=== PATIENT | female | born 1965 | race Two or more races ===

== ENCOUNTER 2017-04-21 07:35 | Emergency (ER) | payer OTHER, SELFPAY ==
[~2017-04-21] VITALS: Ht 154.9 cm; Wt 120.1 kg
[2017-04-21 07:38] VITALS: BP 138/84
[2017-04-21] MEDS ORDERED: IBUPROFEN 200 MG TABLET PO ONE (08:00)
[2017-04-21] MEDS ORDERED: HYDROcodone/APAP 5/325 TABLET PO ONE (08:00)
[2017-04-21] MEDS ORDERED: IBUPROFEN 200 MG TABLET ONE (08:10)
[2017-04-21] MEDS ORDERED: HYDROcodone/APAP 5/325 TABLET ONE (08:10)
[2017-04-21 08:26] LABS: HEMATOCRIT 40.5 % (34.6-47.8); HEMOGLOBIN 13.9 g/dL (11.7-16.4); WHITE BLOOD COUNT 6.7 x10^3/uL (3.4-10)
== END 2017-04-21 09:26 | disposition home or self-care (01) ==
LOC: ED 09:24
DX: L03.032 Cellulitis of left toe (principal); M79.672 Pain in left foot
CPT/HCPCS: 36415; 84550; 85025; 99285

== ENCOUNTER 2017-06-13 00:24 | Emergency (ER) | payer OTHER ==
[~2017-06-13] VITALS: Ht 157.5 cm; Wt 122.2 kg
[2017-06-13 00:26] VITALS: BP 145/85
[2017-06-13] MEDS ORDERED: KETOROLAC 30 MG/1 ML ONE (00:39)
[2017-06-13] MEDS ORDERED: KETOROLAC 30 MG/1 ML IM ONE (01:00)
== END 2017-06-13 01:54 | disposition home or self-care (01) ==
LOC: ED 01:49
DX: S40.012A Contusion of left shoulder, initial encounter (principal); S60.212A Contusion of left wrist, initial encounter; E11.9 Type 2 diabetes mellitus without complications; W10.8XXA Fall (on) (from) other stairs and steps, initial encounter; Y93.89 Activity, other specified; Y92.098 Other place in other non-institutional residence as the place of occurrence of the external cause; Y99.8 Other external cause status
CPT/HCPCS: 73030; 73110; 96372; 99284; J1885

== ENCOUNTER 2017-09-23 20:53 | Emergency (ER) | payer SELFPAY ==
[~2017-09-23] VITALS: Ht 162.6 cm; Wt 120.0 kg
[2017-09-23 21:31] VITALS: BP 133/79
[2017-09-23] MEDS ORDERED: NAPROXEN 500 MG TABLET PO ONE (22:30)
== END 2017-09-23 23:22 | disposition home or self-care (01) ==
LOC: ED 23:09
DX: M25.512 Pain in left shoulder (principal); M79.602 Pain in left arm; E11.9 Type 2 diabetes mellitus without complications
CPT/HCPCS: 93005; 99284

== ENCOUNTER 2017-12-24 23:36 | Observation (INO) | payer SELFPAY ==
[~2017-12-24] VITALS: Ht 165.1 cm; Wt 110.8 kg
[2017-12-25 00:27] LABS: MD NO; MEAN PLATELET VOLUME 7.5 fL (7.4-10.4)
[2017-12-25 00:34] LABS: BASOPHILS # (AUTO) 0.03 x10^3/uL (0-0.1); BASOPHILS % (AUTO) 0 % (0-1); EOSINOPHILS # (AUTO) 0.13 x10^3/uL (0-0.4); EOSINOPHILS % (AUTO) 2 % (1-7); LYMPHOCYTES % (AUTO) 36 % (22-44); MEAN CORPUSCULAR HEMOGLOBIN 29.8 pg (27.0-34.8); MEAN CORPUSCULAR HGB CONC 34.4 g/dL (32.4-35.8); MEAN CORPUSCULAR VOLUME 86.7 fL (80-100); MONOCYTES # (AUTO) 0.42 x10^3/uL (0.2-0.8); MONOCYTES % (AUTO) 5 % (2-9); NEUTROPHILS # (AUTO) 4.43 x10^3/uL (1.8-6.8); NEUTROPHILS % (AUTO) 57 % (42-75); PLATELET COUNT 308 x10^3/uL (130-400); RED BLOOD COUNT 4.59 x10^6/uL (3.82-5.3); RED CELL DISTRIBUTION WIDTH 13.6 % (9.6-15.2)
[2017-12-25 00:41] LABS: ALBUMIN 3.7 g/dL (3.4-5.0); ANION GAP 3 mmol/L (5-15); CALCIUM 8.7 mg/dL (8.5-10.1); CHLORIDE 104 mmol/L (98-107); CREATININE 0.77 mg/dL (0.55-1.02)
[2017-12-25 00:45] LABS: TROPONIN I < 0.015 ng/mL (0.000-0.045)
[2017-12-25] MEDS ORDERED: METF500T5 PO ×2 (00:59→02:50)
[2017-12-25] MEDS ORDERED: MORPHINE SULFATE 4 MG/ML, 1ML IVPush PRN ×2 (01:30→02:30)
[2017-12-25] MEDS ORDERED: ONDANSETRON 2MG/ML, 2ML IVPush PRN ×2 (01:30→05:00)
[2017-12-25] MEDS ORDERED: ACETAMINOPHEN 325 MG TABLET ONE (02:25)
[2017-12-25] MEDS ORDERED: NITROGLYCERIN 0.4 MG BOTTLE (25 TABS) SL ONE (02:26)
[2017-12-25] MEDS: ACETAMINOPHEN 325 MG TABLET PO PRN ×2 (02:27→08:46)
[2017-12-25] MEDS ORDERED: NITROGLYCERIN 0.4 MG/SPRAY SL PRN (02:30)
[2017-12-25] MEDS ORDERED: NITROGLYCERIN 0.4 MG BOTTLE (25 TABS) SL PRN ×2 (02:30→05:00)
[2017-12-25 02:31] VITALS: BP 118/77
[2017-12-25 02:36] VITALS: BP 112/73
[2017-12-25 02:38] VITALS: BP 119/80
[2017-12-25 02:56] LABS: TROPONIN I < 0.015 ng/mL (0.000-0.045)
[2017-12-25] MEDS ORDERED: SODIUM CHLORIDE 0.9% 1,000 ML IV SCH (04:55)
[2017-12-25] MEDS ORDERED: DOCUSATE 100 MG CAPSULE PO PRN (05:00)
[2017-12-25] MEDS ORDERED: PROMETHAZINE 25 MG/ML, 1ML IM PRN (05:00)
[2017-12-25] MEDS ORDERED: OXYcodone IR 5MG TABLET PO PRN (05:00)
[2017-12-25] MEDS ORDERED: morphine SULFATE 10 MG/ML, 1ML IVPush PRN (05:00)
[2017-12-25] MEDS ORDERED: HEPARIN 5,000 UNITS/ML, 1ML SQ SCH (05:00)
[2017-12-25] MEDS ORDERED: BISACODYL 10 MG SUPP PR PRN (05:00)
[2017-12-25] MEDS ORDERED: POLYETHYLENE GLYCOL 17 GM PACKET PO PRN (05:00)
[2017-12-25] MEDS ORDERED: ACETAMINOPHEN 325 MG TABLET PO PRN (05:00)
[2017-12-25] MEDS ORDERED: ONDANSETRON ODT 4 MG PO PRN (05:00)
[2017-12-25] MEDS ORDERED: AMOXICILLIN/CLAV 875-125MG TABLET PO SCH (05:30)
[2017-12-25] MEDS ORDERED: ASPIRIN 325 MG TABLET EC PO SCH (06:00)
[2017-12-25 06:47] VITALS: BP 110/74
[2017-12-25] MEDS: INSULIN LISPRO 100 UNITS/ML, PEN SQ-INSULIN SCH ×2 (07:00→11:00)
[2017-12-25 07:12] LABS: TROPONIN I < 0.015 ng/mL (0.000-0.045)
[2017-12-25 07:18] LABS: CHOL/HDL RATIO 3.4; FREE T4 (FREE THYROXINE) 1.28 ng/dL (0.76-1.46); THYROID STIMULATING HORMONE 1.85 mIU/L (0.358-3.740)
[2017-12-25 07:35] LABS: HEMOGLOBIN A1C 6.9 % (4.2-6.3)
[2017-12-25] MEDS ORDERED: REGADENOSON 0.4 MG/5 ML SYRINGE ONE (08:06)
[2017-12-25 09:17] LABS: MICROSCOPIC NOT IND
[2017-12-25 09:19] LABS: CULTURE INDICATED? NO
[2017-12-25] MEDS ORDERED: ACET-1600 PO (13:06)
[2017-12-25] MEDS ORDERED: OMEP-110 PO (13:06)
[2017-12-25] MEDS ORDERED: AMOX1TAB12 PO (13:06)
== END 2017-12-25 15:22 | disposition home or self-care (01) ==
LOC: ED 23:59 → EDIP 12-25 01:29 → INTOOBSV 12-25 01:29 → 5SO 12-25 02:15
PROVIDERS: ADMIT Internal Medicine; ATTEND Internal Medicine
DX: R07.89 Other chest pain (principal); H92.01 Otalgia, right ear; R06.00 Dyspnea, unspecified; E11.9 Type 2 diabetes mellitus without complications; E78.5 Hyperlipidemia, unspecified; K21.9 Gastro-esophageal reflux disease without esophagitis; Z82.49 Family history of ischemic heart disease and other diseases of the circulatory system; Z83.3 Family history of diabetes mellitus
CPT/HCPCS: 36415; 71045; 78452; 80048; 80061; 81003; 82040; 82962; 83036; 83735; 84439; 84443; 84484; 85025; 93005; 93017; 96360; 96361; 96372; 99285; A9502; C9898; G0378; J1644; J2785; J7030

== ENCOUNTER 2018-04-24 17:30 | Emergency (ER) | payer MEDICAID, OTHER ==
[~2018-04-24] VITALS: Ht 157.5 cm; Wt 117.5 kg
[~2018-04-24 17:30] MED LIST: ACET-1600 PO; AMOX1TAB12 PO; METF500T17 PO; OMEP-110 PO
[2018-04-24 19:11] VITALS: BP 150/69
== END 2018-04-24 19:13 | disposition home or self-care (01) ==
LOC: ED 18:47
DX: N64.4 Mastodynia (principal); E78.5 Hyperlipidemia, unspecified; E11.9 Type 2 diabetes mellitus without complications
CPT/HCPCS: 76642; 99284

== ENCOUNTER 2018-10-25 16:52 | Emergency (ER) | payer SELFPAY ==
[~2018-10-25] VITALS: Ht 154.9 cm; Wt 117.6 kg
[2018-10-25 17:27] LABS: BASOPHILS # (AUTO) 0.04 x10^3/uL (0-0.1); BASOPHILS % (AUTO) 0 % (0-1); EOSINOPHILS # (AUTO) 0.11 x10^3/uL (0-0.4); EOSINOPHILS % (AUTO) 1 % (1-7); LYMPHOCYTES # (AUTO) 3.17 x10^3/uL (1-3.4); LYMPHOCYTES % (AUTO) 33 % (22-44); MD NO; MEAN CORPUSCULAR HEMOGLOBIN 29.7 pg (27.0-34.8); MEAN CORPUSCULAR HGB CONC 33.4 g/dL (32.4-35.8); MEAN CORPUSCULAR VOLUME 88.8 fL (80-100); MEAN PLATELET VOLUME 7.3 fL (7.4-10.4); MONOCYTES # (AUTO) 0.61 x10^3/uL (0.2-0.8); MONOCYTES % (AUTO) 6 % (2-9); NEUTROPHILS # (AUTO) 5.56 x10^3/uL (1.8-6.8); NEUTROPHILS % (AUTO) 59 % (42-75); PLATELET COUNT 338 x10^3/uL (130-400); RED CELL DISTRIBUTION WIDTH 13.3 % (9.6-15.2)
--- NOTE | 2018-10-25 17:28 | NUR ---
SARAVIA AND COLD-LIKE CONGESTION SINCE YESTERDAY WITH CP SINCE 5 AM. SHARP, PRESSURE. RADIATES TO THE BACK WITH NAUSEA.
[2018-10-25 17:38] LABS: ALANINE AMINOTRANSFERASE 19 U/L (12-78); ALBUMIN 3.7 g/dL (3.4-5.0); ANION GAP 7 mmol/L (5-15); CALCIUM 8.6 mg/dL (8.5-10.1); CHLORIDE 103 mmol/L (98-107); CREATININE 0.76 mg/dL (0.55-1.02)
[2018-10-25 17:42] LABS: ALKALINE PHOSPHATASE 114 U/L (45-117); BILIRUBIN,TOTAL 0.4 mg/dL (0.2-1.0); TOTAL PROTEIN 7.5 g/dL (6.4-8.2); TROPONIN I < 0.015 ng/mL (0.000-0.045)
[2018-10-25] MEDS ORDERED: ONDANSETRON 2MG/ML, 2ML ONE (17:49)
[2018-10-25] MEDS ORDERED: SODIUM CHLORIDE FLUSH 10ML SYR IVF ONE (18:00)
[2018-10-25] MEDS ORDERED: ONDANSETRON 2MG/ML, 2ML IVPush ONE (18:00)
[2018-10-25 18:26] LABS: RAPID INFLUENZA A Negative (Negative); RAPID INFLUENZA B Negative (Negative)
[2018-10-25] MEDS ORDERED: MORPHINE SULFATE 4 MG/ML, 1ML ONE (19:19)
--- NOTE | 2018-10-25 19:26 | NUR ---
MD PATEL AND PT C/O SARAVIA. MEDICATED PER ORDERS AND TO HAVE HEAD CT. FAMILY AT BEDSIDE
[2018-10-25] MEDS ORDERED: MORPHINE SULFATE 4 MG/ML, 1ML IVPush ONE (19:30)
--- NOTE | 2018-10-25 20:06 | NUR ---
CONTINUES TO HAVE SARAVIA DESPITE MEDICATION. TO CT
[2018-10-25] MEDS ORDERED: KETOROLAC 30 MG/1 ML ONE (21:10)
[2018-10-25 21:26] VITALS: BP 133/66
[2018-10-25] MEDS ORDERED: KETOROLAC 30 MG/1 ML IVPush ONE (21:30)
== END 2018-10-25 21:28 | disposition home or self-care (01) ==
LOC: ED 18:27
DX: R51 Headache (principal); B34.9 Viral infection, unspecified; R07.89 Other chest pain; E11.9 Type 2 diabetes mellitus without complications; E78.5 Hyperlipidemia, unspecified
CPT/HCPCS: 36415; 70450; 71046; 80053; 83690; 84484; 85025; 87400; 93005; 96374; 96375; 99284; J1885; J2270; J2405

== ENCOUNTER 2018-11-22 21:09 | Observation (INO) | payer OTHER ==
[~2018-11-22] VITALS: Ht 160 cm; Wt 118.0 kg
[2018-11-22] MEDS ORDERED: ASPIRIN 81 MG TABLET CHEW PO ONE (22:00)
[2018-11-22 22:34] LABS: BASOPHILS # (AUTO) 0.03 x10^3/uL (0-0.1); BASOPHILS % (AUTO) 0 % (0-1); EOSINOPHILS # (AUTO) 0.16 x10^3/uL (0-0.4); EOSINOPHILS % (AUTO) 2 % (1-7); LYMPHOCYTES # (AUTO) 2.98 x10^3/uL (1-3.4); LYMPHOCYTES % (AUTO) 43 % (22-44); MD NO; MEAN CORPUSCULAR HEMOGLOBIN 29.6 pg (27.0-34.8); MEAN CORPUSCULAR HGB CONC 33.4 g/dL (32.4-35.8); MEAN CORPUSCULAR VOLUME 88.4 fL (80-100); MEAN PLATELET VOLUME 7.4 fL (7.4-10.4); MONOCYTES # (AUTO) 0.41 x10^3/uL (0.2-0.8); MONOCYTES % (AUTO) 6 % (2-9); NEUTROPHILS % (AUTO) 49 % (42-75); PLATELET COUNT 301 x10^3/uL (130-400); RED BLOOD COUNT 4.53 x10^6/uL (3.82-5.3); RED CELL DISTRIBUTION WIDTH 13.5 % (9.6-15.2)
--- NOTE | 2018-11-22 22:34 | NUR ---
PT IS HERE FOR SOB X 1 DAY. PT REPORTS THAT SHE ALSO HAS BACK PAIN AND IS VERY UNCOMFROTABLE. PT DENIES TRUAMA. PT REPORTS PREVIOUS EPISODE OF THIS A FEW YEARS BACK. PT DENIES ANY SIGNIFICANT CARDIAC EVENTS. PT CONNECTED TO MONITORS AND CALL LIGHT IN REACH. AWAITING FURTHER ORDERS.
[2018-11-22 22:36] LABS: ALANINE AMINOTRANSFERASE 16 U/L (12-78); ALBUMIN 3.3 g/dL (3.4-5.0); ANION GAP 1 mmol/L (5-15); CALCIUM 8.4 mg/dL (8.5-10.1); CHLORIDE 108 mmol/L (98-107)
[2018-11-22] MEDS ORDERED: ASPIRIN 81 MG TABLET CHEW ONE (22:36)
[2018-11-22 22:41] LABS: ALKALINE PHOSPHATASE 96 U/L (45-117); BILIRUBIN,TOTAL 0.3 mg/dL (0.2-1.0); TOTAL PROTEIN 6.6 g/dL (6.4-8.2); TROPONIN I < 0.015 ng/mL (0.000-0.045)
[2018-11-22] MEDS ORDERED: ACETAMINOPHEN 500 MG TABLET PO ONE (23:30)
[2018-11-23] MEDS ORDERED: ACETAMINOPHEN 500 MG TABLET ONE (00:07)
[2018-11-23 00:24] VITALS: BP 127/75
[2018-11-23] MEDS ORDERED: ENOXAPARIN 40 MG/0.4 ML SQ SCH (00:30)
[2018-11-23] MEDS ORDERED: hydrALAzine 20 MG/ML, 1ML IVPush PRN (00:30)
[2018-11-23] MEDS ORDERED: ACETAMINOPHEN 325 MG TABLET PO PRN ×2 (00:30→10:00)
[2018-11-23 01:05] LABS: TROPONIN I < 0.015 ng/mL (0.000-0.045)
[2018-11-23 01:10] LABS: HEMOGLOBIN A1C 8.2 % (4.2-6.3)
[2018-11-23] MEDS ORDERED: ASPIRIN 325 MG TABLET EC PO SCH (06:00)
[2018-11-23 06:33] LABS: TROPONIN I < 0.015 ng/mL (0.000-0.045)
[2018-11-23 06:45] VITALS: BP 123/81
[2018-11-23] MEDS: INSULIN LISPRO 100 UNITS/ML, PEN SQ-INSULIN SCH ×2 (07:28→10:48)
[2018-11-23] MEDS ORDERED: REGADENOSON 0.4 MG/5 ML SYRINGE ONE (08:08)
[2018-11-23] MEDS ORDERED: NITROGLYCERIN 0.4 MG BOTTLE (25 TABS) SL PRN (10:00)
[2018-11-23] MEDS ORDERED: KETOROLAC 30 MG/1 ML IVPush SCH (10:00)
[2018-11-23] MEDS ORDERED: NITROGLYCERIN 0.4 MG/SPRAY SL PRN (10:00)
[2018-11-23 10:07] LABS: CHOL/HDL RATIO 3.9; LDL/HDL RATIO 2.1 (0.5-3.0)
[2018-11-23 10:37] VITALS: BP 131/86
[2018-11-23] MEDS ORDERED: METHOCARBAMOL 500 MG TABLET PO SCH (11:00)
[2018-11-23] MEDS ORDERED: IBUP-1484 PO (13:26)
[2018-11-23] MEDS ORDERED: ACET325T26 PO (13:26)
[2018-11-23] MEDS ORDERED: METH500T7 PO (13:26)
[2018-11-23] MEDS ORDERED: ASPI-515 PO (13:26)
[2018-11-23] MEDS ORDERED: SIMV20TA3 PO (13:26)
[2018-11-23] MEDS ORDERED: GABA-826 PO (13:26)
== END 2018-11-23 15:40 | disposition home or self-care (01) ==
LOC: ED 22:59 → UNDOADMOB 23:28 → INTOOBSV 23:28 → EDIP 23:28 → 5SO 11-23 00:12 → EDIP 11-23 00:12 → 5SO 11-23 00:12 → DCLOUNGE 11-23 15:30 → UNDODISOB 11-23 15:40
PROVIDERS: ADMIT Family Medicine; ATTEND Family Medicine
DX: R07.89 Other chest pain (principal); E11.9 Type 2 diabetes mellitus without complications; E66.01 Morbid (severe) obesity due to excess calories; E78.5 Hyperlipidemia, unspecified; Z79.01 Long term (current) use of anticoagulants; Z79.82 Long term (current) use of aspirin; Z79.84 Long term (current) use of oral hypoglycemic drugs; Z90.49 Acquired absence of other specified parts of digestive tract; Z82.49 Family history of ischemic heart disease and other diseases of the circulatory system
CPT/HCPCS: 36415; 71045; 78452; 80053; 80061; 82962; 83036; 83690; 83880; 84484; 85025; 93005; 93017; 96372; 96374; 99284; A9502; C9898; G0378; J1650; J1885; J2785

== ENCOUNTER 2018-12-24 19:39 | Emergency (ER) | payer MEDICAID, OTHER ==
[~2018-12-24] VITALS: Ht 157.5 cm; Wt 107.0 kg
[2018-12-24 20:11] VITALS: BP 128/66
== END 2018-12-24 20:47 | disposition home or self-care (01) ==
LOC: ED 20:20
DX: K08.89 Other specified disorders of teeth and supporting structures (principal); E78.5 Hyperlipidemia, unspecified; E11.9 Type 2 diabetes mellitus without complications
CPT/HCPCS: 99283

== ENCOUNTER 2019-01-14 19:50 | Emergency (ER) | payer MEDICAID, OTHER ==
[~2019-01-14] VITALS: Ht 154.9 cm; Wt 116.7 kg
[2019-01-14 19:55] VITALS: BP 151/65
== END 2019-01-14 21:36 | disposition home or self-care (01) ==
LOC: ED 21:23
DX: K08.89 Other specified disorders of teeth and supporting structures (principal); R11.0 Nausea; E11.9 Type 2 diabetes mellitus without complications; E78.5 Hyperlipidemia, unspecified
CPT/HCPCS: 96372; 99283; J1885; Q0162

== ENCOUNTER 2019-07-14 17:15 | Emergency (ER) | payer SELFPAY ==
[~2019-07-14] VITALS: Ht 154.9 cm; Wt 114.0 kg
[~2019-07-14 17:15] MED LIST changes: +ACET325T26 PO; +ASPI-515 PO; +GABA-826 PO; +IBUP-1902 PO; +METH500T7 PO; +SIMV20TA19 PO
[2019-07-14 18:00] VITALS: BP 156/86
== END 2019-07-14 20:05 | disposition home or self-care (01) ==
LOC: ED 19:59
DX: J20.8 Acute bronchitis due to other specified organisms (principal); K12.0 Recurrent oral aphthae; B00.1 Herpesviral vesicular dermatitis; E11.65 Type 2 diabetes mellitus with hyperglycemia
CPT/HCPCS: 71045; 99283

== ENCOUNTER 2020-03-06 23:37 | Emergency (ER) | payer SELFPAY ==
[~2020-03-06] VITALS: Ht 157.5 cm; Wt 113.0 kg
--- NOTE | 2020-03-07 02:23 | NUR ---
CONFIGURATION ENGINEER: PT. TO ROOM FROM LOBBY AT THIS TIME. STEADY GAIT.
[2020-03-07] MEDS ORDERED: HYDROcodone/APAP 5/325 TABLET ONE (02:39)
[2020-03-07 02:48] LABS: BASOPHILS % (AUTO) 1 % (0-1); EOSINOPHILS % (AUTO) 2 % (1-7); LYMPHOCYTES % (AUTO) 45 % (22-44); MEAN CORPUSCULAR HEMOGLOBIN 28.6 pg (27.0-34.8); MEAN CORPUSCULAR HGB CONC 33.3 g/dL (32.4-35.8); MONOCYTES % (AUTO) 7 % (2-9); NEUTROPHILS % (AUTO) 46 % (42-75); PLATELET COUNT 346 x10^3/uL (130-400); RED BLOOD COUNT 4.71 x10^6/uL (3.82-5.3); RED CELL DISTRIBUTION WIDTH 13.4 % (9.6-15.2)
--- NOTE | 2020-03-07 02:53 | NUR ---
Note elise in ED - 03/07/20 at 0303 by [email or web address] COVERING TRACIE FOR BREAK, PT REQUESTING SOMETHING ELSE FOR N/V, INFORMED ERP. VSS, IVF INFUSING.
[2020-03-07 02:58] LABS: ALBUMIN 3.6 g/dL (3.4-5.0); ANION GAP 7 mmol/L (5-15); CHLORIDE 102 mmol/L (98-107); CREATININE 0.79 mg/dL (0.55-1.02); MD NO
[2020-03-07] MEDS ORDERED: HYDROcodone/APAP 5/325 TABLET PO ONE (03:00)
--- NOTE | 2020-03-07 03:03 | NUR ---
COVERING FOR BREAK, NO CHANGE IN ASSESSMENT. RR EQUAL AND UNLABORED.
--- NOTE | 2020-03-07 03:14 | NUR ---
PT SAYS SHE FEELS SLIGHTLY BETTER. AWAITING MD RECHECK AND DISPO.
[2020-03-07] MEDS ORDERED: CEPHALEXIN 500 MG CAPSULE ONE (03:25)
[2020-03-07] MEDS ORDERED: SULFAMETH./TRIMETHOPRIM DS 800MG/160MG TABLET PO ONE (03:30)
[2020-03-07] MEDS ORDERED: CEPHALEXIN 500 MG CAPSULE PO ONE (03:30)
[2020-03-07] MEDS ORDERED: SULFAMETH./TRIMETHOPRIM DS 800MG/160MG TABLET ONE (03:39)
[2020-03-07 03:47] VITALS: BP 132/74
== END 2020-03-07 03:50 | disposition home or self-care (01) ==
LOC: ED 03-07 02:35
DX: L03.032 Cellulitis of left toe (principal); E11.65 Type 2 diabetes mellitus with hyperglycemia; E78.5 Hyperlipidemia, unspecified
CPT/HCPCS: 36415; 80048; 82040; 85025; 99284

== ENCOUNTER 2020-06-25 02:35 | Emergency (ER) | payer SELFPAY ==
[~2020-06-25] VITALS: Ht 154.9 cm; Wt 97.7 kg
[2020-06-25] MEDS ORDERED: ONDANSETRON 2MG/ML, 2ML ONE (04:21)
[2020-06-25] MEDS ORDERED: MORPHINE SULFATE 4 MG/ML, 1ML ONE (04:22)
[2020-06-25] MEDS ORDERED: SODIUM CHLORIDE FLUSH 10ML SYR IVF ONE (04:30)
[2020-06-25] MEDS ORDERED: ONDANSETRON 2MG/ML, 2ML IVPush ONE (04:30)
[2020-06-25] MEDS ORDERED: MORPHINE SULFATE 4 MG/ML, 1ML IVPush PRN (04:30)
--- NOTE | 2020-06-25 04:35 | NUR ---
PT RESTING IN BED WITH FAMILY AT PT SIDE, PT HAS C-COLAR ON. PT "SLIPPED O ICE AND ROLLED [address] " PER PT SON. PT MEDICATED PER JUL. PT DENIED LOC
[2020-06-25 05:08] LABS: BASOPHILS % (AUTO) 1 % (0-1); EOSINOPHILS % (AUTO) 2 % (1-7); LYMPHOCYTES % (AUTO) 39 % (22-44); MEAN CORPUSCULAR HGB CONC 33.9 g/dL (32.4-35.8); MEAN PLATELET VOLUME 7.2 fL (7.4-10.4); MONOCYTES % (AUTO) 8 % (2-9); NEUTROPHILS % (AUTO) 52 % (42-75); PLATELET COUNT 308 x10^3/uL (130-400); RED CELL DISTRIBUTION WIDTH 13.2 % (9.6-15.2)
[2020-06-25 05:09] LABS: MD NO
[2020-06-25 05:14] LABS: ALBUMIN 3.6 g/dL (3.4-5.0); ANION GAP 5 mmol/L (5-15); CALCIUM 8.2 mg/dL (8.5-10.1); CHLORIDE 104 mmol/L (98-107)
[2020-06-25] MEDS ORDERED: OMNIPAQUE 350 MG/ML, 100ML BOTTLE ONE (06:03)
--- NOTE | 2020-06-25 07:01 | NUR ---
REPORT TO MARIANA BAXTER
[2020-06-25 08:24] VITALS: BP 117/68
== END 2020-06-25 09:13 | disposition home or self-care (01) ==
LOC: ED 07:46
DX: S29.012A Strain of muscle and tendon of back wall of thorax, initial encounter (principal); S16.1XXA Strain of muscle, fascia and tendon at neck level, initial encounter; M25.512 Pain in left shoulder; M54.2 Cervicalgia; E11.9 Type 2 diabetes mellitus without complications; E78.5 Hyperlipidemia, unspecified; R10.84 Generalized abdominal pain; W01.0XXA Fall on same level from slipping, tripping and stumbling without subsequent striking against object, initial encounter; Y93.89 Activity, other specified; Y92.89 Other specified places as the place of occurrence of the external cause; Y99.8 Other external cause status
CPT/HCPCS: 36415; 72072; 72125; 73030; 74177; 80048; 82040; 85025; 96374; 96375; 99285; J2270; J2405; Q9967

== ENCOUNTER 2020-07-01 17:50 | Emergency (ER) | payer SELFPAY ==
[~2020-07-01] VITALS: Ht 170.2 cm; Wt 114.7 kg
[~2020-07-01 17:50] MED LIST changes: -ASPI-515 PO; +ASPI-963 PO; +METH-639 PO; -METH500T7 PO
--- NOTE | 2020-07-01 18:06 | NUR ---
superintendent factory: EKG done in triage
--- NOTE | 2020-07-01 18:06 | NUR ---
pt daughter present in triage as medical office supervisor Glendamarcelina Su, age 20, cell phone #[phone]
[2020-07-01 18:35] LABS: BASOPHILS % (AUTO) 1 % (0-1); EOSINOPHILS % (AUTO) 2 % (1-7); LYMPHOCYTES % (AUTO) 44 % (22-44); MEAN CORPUSCULAR HEMOGLOBIN 29.1 pg (27.0-34.8); MEAN PLATELET VOLUME 6.9 fL (7.4-10.4); MONOCYTES % (AUTO) 6 % (2-9); NEUTROPHILS % (AUTO) 48 % (42-75); PLATELET COUNT 345 x10^3/uL (130-400); RED BLOOD COUNT 4.85 x10^6/uL (3.82-5.3); RED CELL DISTRIBUTION WIDTH 13.4 % (9.6-15.2)
[2020-07-01 18:42] LABS: ALANINE AMINOTRANSFERASE 16 U/L (12-78); ALBUMIN 3.8 g/dL (3.4-5.0); ANION GAP 8 mmol/L (5-15); CALCIUM 8.6 mg/dL (8.5-10.1); CHLORIDE 99 mmol/L (98-107); CREATININE 0.74 mg/dL (0.55-1.02)
[2020-07-01 18:46] LABS: ALKALINE PHOSPHATASE 102 U/L (45-117); BILIRUBIN,TOTAL 0.3 mg/dL (0.2-1.0); TOTAL PROTEIN 7.3 g/dL (6.4-8.2); TROPONIN I < 0.015 ng/mL (0.000-0.045)
[2020-07-01 19:04] LABS: MD NO
--- NOTE | 2020-07-01 21:00 | NUR ---
attempted to assess patient and patient stated she didnt speak belgian. cryacom obtained and i am attempting to use this for interpretation for exam
--- NOTE | 2020-07-01 22:00 | NUR ---
discharge instructions reviewed with patient. In NAD. daughter answered all questions. she states patient had no questions. RN attempted multiple times to have java xml developer dawna to use for interpretation and this was not working. I spoke with Dr. Collazo as patient was up for DC and he was able to discuss plan for this patient. my physical assessment was benign. no prescriptions given. steady gait to lobby. no IV placed during this visit.
[2020-07-01 22:23] VITALS: BP 139/81
== END 2020-07-01 22:25 | disposition home or self-care (01) ==
LOC: ED 21:20
DX: R07.2 Precordial pain (principal); R06.02 Shortness of breath; R51.9 Headache, unspecified; R22.43 Localized swelling, mass and lump, lower limb, bilateral; R94.31 Abnormal electrocardiogram [ECG] [EKG]; E11.9 Type 2 diabetes mellitus without complications; E78.5 Hyperlipidemia, unspecified; Z88.2 Allergy status to sulfonamides
CPT/HCPCS: 36415; 71045; 80053; 84484; 85025; 93005; 99285

== ENCOUNTER 2020-10-04 22:11 | Emergency (ER) | payer SELFPAY ==
[~2020-10-04] VITALS: Ht 165.1 cm; Wt 114.0 kg
[2020-10-04] MEDS ORDERED: HYDROcodone/APAP 5/325 TABLET ONE (23:05)
[2020-10-04] MEDS ORDERED: ASPIRIN 81 MG TABLET CHEW ONE (23:05)
--- NOTE | 2020-10-04 23:08 | NUR ---
left sided cp and SARAVIA x 2-3 days
--- NOTE | 2020-10-04 23:08 | NUR ---
pt attached to all monitors and medicated for pain per emar. call light within reach
[2020-10-04 23:13] LABS: BASOPHILS % (AUTO) 1 % (0-1); EOSINOPHILS % (AUTO) 2 % (1-7); LYMPHOCYTES % (AUTO) 41 % (22-44); MD NO; MEAN CORPUSCULAR HEMOGLOBIN 29.3 pg (27.0-34.8); MEAN CORPUSCULAR HGB CONC 34.1 g/dL (32.4-35.8); MEAN PLATELET VOLUME 6.9 fL (7.4-10.4); MONOCYTES % (AUTO) 5 % (2-9); NEUTROPHILS % (AUTO) 52 % (42-75); PLATELET COUNT 313 x10^3/uL (130-400); RED BLOOD COUNT 4.43 x10^6/uL (3.82-5.3)
[2020-10-04 23:25] LABS: ALANINE AMINOTRANSFERASE 18 U/L (12-78); ALBUMIN 3.7 g/dL (3.4-5.0); ANION GAP 4 mmol/L (5-15); CALCIUM 8.6 mg/dL (8.5-10.1); CHLORIDE 105 mmol/L (98-107); CREATININE 0.88 mg/dL (0.55-1.02)
[2020-10-04] MEDS ORDERED: HYDROcodone/APAP 5/325 TABLET PO ONE (23:30)
[2020-10-04] MEDS ORDERED: ASPIRIN 81 MG TABLET CHEW PO ONE (23:30)
[2020-10-04 23:35] LABS: ALKALINE PHOSPHATASE 97 U/L (45-117); BILIRUBIN,TOTAL 0.4 mg/dL (0.2-1.0); TOTAL PROTEIN 6.8 g/dL (6.4-8.2); TROPONIN I < 0.015 ng/mL (0.000-0.045)
[2020-10-04 23:45] VITALS: BP 141/71
--- NOTE | 2020-10-04 23:46 | NUR ---
pt reports medications helped "a little bit"
== END 2020-10-05 00:37 | disposition home or self-care (01) ==
LOC: ED 22:41
DX: R07.89 Other chest pain (principal); E11.9 Type 2 diabetes mellitus without complications; E78.5 Hyperlipidemia, unspecified
CPT/HCPCS: 36415; 71045; 80053; 83880; 84436; 84443; 84484; 85025; 93005; 99285

== ENCOUNTER 2020-12-08 00:45 | Emergency (ER) | payer SELFPAY ==
[~2020-12-08] VITALS: Ht 152.4 cm; Wt 112.5 kg
[2020-12-08] MEDS ORDERED: IBUPROFEN 200 MG TABLET PO ONE (01:30)
[2020-12-08] MEDS ORDERED: ACETAMINOPHEN 500 MG TABLET PO ONE (01:30)
[2020-12-08] MEDS ORDERED: IBUPROFEN 600 MG TABLET ONE (01:59)
[2020-12-08] MEDS ORDERED: ACETAMINOPHEN 500 MG TABLET ONE (02:00)
--- NOTE | 2020-12-08 02:03 | NUR ---
PT PRESENTS TO ER WITH SON FOR CHEST PAIN SINCE YESTERDAY, PT STATES THAT SHE HAS HAD CHEST PAIN IN HER LEFT SIDE THAT RADIATES TO HER LEFT ARM, PT REPORTS OF SOB AND DIZZINESS WELL, PT NOT NAUSEOUS, PT NOT DIAPHORETIC, SON AT BEDSIDE
[2020-12-08 02:09] LABS: HCT (SEDRATE) 38.7 % (34.6-47.8)
[2020-12-08 02:11] LABS: BASOPHILS % (AUTO) 1 % (0-1); EOSINOPHILS % (AUTO) 2 % (1-7); LYMPHOCYTES % (AUTO) 50 % (22-44); MEAN CORPUSCULAR HEMOGLOBIN 29.5 pg (27.0-34.8); MEAN CORPUSCULAR HGB CONC 33.9 g/dL (32.4-35.8); MONOCYTES % (AUTO) 6 % (2-9); NEUTROPHILS % (AUTO) 42 % (42-75); PLATELET COUNT 300 x10^3/uL (130-400); RED BLOOD COUNT 4.42 x10^6/uL (3.82-5.3); RED CELL DISTRIBUTION WIDTH 13.7 % (9.6-15.2)
[2020-12-08 02:23] LABS: ALANINE AMINOTRANSFERASE 21 U/L (12-78); ALBUMIN 3.4 g/dL (3.4-5.0); ANION GAP 2 mmol/L (5-15); CALCIUM 8.3 mg/dL (8.5-10.1); CHLORIDE 103 mmol/L (98-107); CREATININE 0.54 mg/dL (0.55-1.02)
[2020-12-08 02:27] LABS: ALKALINE PHOSPHATASE 86 U/L (45-117); BILIRUBIN,TOTAL 0.4 mg/dL (0.2-1.0); TOTAL PROTEIN 6.9 g/dL (6.4-8.2); TROPONIN I < 0.015 ng/mL (0.000-0.045)
--- NOTE | 2020-12-08 02:32 | NUR ---
PT LAYING IN BED, A/OX4, SON AT BEDSIDE, ALL NEEDS IN REACH, CALL LIGHT IN REACH, NAD AT THIS TIME, PT HAS NO COMPLAINTS AT THIS POINT
[2020-12-08] MEDS ORDERED: AMOXICILLIN 500 MG CAPSULE ONE (03:11)
[2020-12-08 03:18] VITALS: BP 127/79
[2020-12-08] MEDS ORDERED: AMOXICILLIN 500 MG CAPSULE PO ONE (03:30)
== END 2020-12-08 04:18 | disposition home or self-care (01) ==
LOC: ED 02:00
DX: R07.89 Other chest pain (principal); R51.9 Headache, unspecified; H66.001 Acute suppurative otitis media without spontaneous rupture of ear drum, right ear; E11.65 Type 2 diabetes mellitus with hyperglycemia; E78.5 Hyperlipidemia, unspecified
CPT/HCPCS: 36415; 71045; 80053; 84484; 85025; 85651; 93005; 99285